=== PATIENT | female | born 1950 | race Caucasian/White ===

== ENCOUNTER 2018-04-14 16:42 | Emergency (ER) | payer MEDICARE ==
[~2018-04-14 16:42] MED LIST: Iopamidol 370 76% 100 ML VIAL ONE
[2018-04-14] MEDS ORDERED: Ondansetron HCl/PF 4 MG/2 ML Vial ONE (17:09)
[2018-04-14 17:27] LABS: Bilirubin Moderate (Negative); Blood, Urine Negative (Negative); Clarity Slightly Cloudy (Clear); Glucose, Urine (Dipstick) Negative (Negative); Leukocyte Moderate (Negative); Nitrite Negative (Negative); Protein, Urine (Dipstick) Negative (Neg-Trace); Urobilinogen 0.2 mg/dL (0.2-1.0); pH, Urine 5.5 (5.0-9.0)
[2018-04-14 17:28] LABS: Bacteria/HPF 4+ HPF (None Seen); Hyaline Casts/LPF NONE SEEN LPF (0-3 Hyaline); RBC/HPF None Seen HPF (0-3); Squamous Epithelial 0-3 HPF (0-3)
[2018-04-14 17:39] LABS: #Basophils 0.1 thou/uL (0.0-0.2); #Eosinphils 0.2 thou/uL (0.0-0.7); #Lymphocytes 2.1 thou/uL (1.20-3.40); #Monocytes 0.8 thou/uL (0.11-0.59); #Neutrophils 7.4 thou/uL (1.40-6.50); %Basophils 0.5 % (0.0-1.0); %Eosinophils 2.1 % (0.0-10.0); %Lymphocytes 19.7 % (21.0-51.0); %Neutrophils 69.7 % (42.0-75.0); Hemoglobin 13.9 g/dL (12.0-16.0); Mean Corpuscular Hemoglobin 29.4 pg (27.0-31.0); Mean Corpuscular Volume 86.4 fl (81.0-99.0); Mean Platelet Volume 8.2 fL (7.4-10.4); Platelet Count 232 thou/uL (130-400); RBC Distribution Width 11.2 % (11.5-14.5); Red Blood Cell (RBC) Count 4.73 mill/uL (4.20-5.40); White Blood Cell (WBC) Count 10.6 thou/uL (4.8-10.8)
[2018-04-14 17:50] LABS: ALT (SGPT) 21 U/L (8-55); AST (SGOT) 19 U/L (5-34); Albumin 4.2 g/dL (3.4-4.8); Alkaline Phosphatase 79 U/L (40-150); Anion Gap 12 mmol/L (10-20); BUN (Urea Nitrogen) 14 mg/dL (9.8-20.1); Bilirubin, Total 0.4 mg/dL (0.2-1.2); Calc. Creatinine Clearance 0 mL/min (70-130); Calcium 9.6 mg/dL (7.8-10.44); Carbon Dioxide 29 mmol/L (23-31); Chloride 105 mmol/L (98-107); Estimated GFR-MDRD 71; Globulin 2.7 g/dL (2.4-3.5); Glucose 135 mg/dL (80-115); Lipase 31 U/L (8-78); Protein, Total 6.9 g/dL (6.0-8.3); Sodium 142 mmol/L (136-145)
[2018-04-14] MEDS ORDERED: metroNIDAZOLE 500 MG/100 ML BAG ONE (19:22)
--- NOTE | 2018-04-14 19:46 | CT ---
CT OF ABDOMEN AND PELVIS 04/14/18 COMPARISON: None. HISTORY: Abdominal pain. History of diverticulitis. TECHNIQUE: Serial axial CT imaging at 5 mm intervals from lung bases through pubic symphysis with IV and oral co ntrast. Coronal reformatted imaging obtained. FINDINGS: The imaged lung bases are unremarkable. Cholecystectomy clips are noted. No free intraperitoneal air or fluid is seen. The liver, spleen, pancreas, and adrenal glands are grossly unremarkable. There is a punctate focus o f gas at the level of the ampulla in the region of the CBD, which may be on the basis of prior interv ention. The kidneys appear grossly unremarkable. There is diverticulosis of the descending colon and sigmoid colon. There is an area of wall thickenin g involving the sigmoid colon with mild pericolonic inflammatory change laterally within the left low er quadrant, best seen on axial image 63. This suggests diverticulitis. No associated abscess. No ext raluminal gas. No evidence for bowel obstruction. Appendix appears unremarkable. No adenopathy is identified within the abdomen or pelvis. Review of osseous structures demonstrates multilevel lumbar spine degenerative change, which includes multilevel disc space narrowing, degenerative end plate change, osteophyte formation, and vacuum dis c formation. No worrisome lytic or blastic bone lesion. IMPRESSION: Findings suggesting sigmoid diverticulitis. No evidence for obstruction or abscess formation. No free intraperitoneal air. POS: CHERYLE
== END 2018-04-14 20:30 | disposition home or self-care (01) ==
LOC: SCSER 16:42
DX: K57.32 Diverticulitis of large intestine without perforation or abscess without bleeding (principal); N30.00 Acute cystitis without hematuria; I10 Essential (primary) hypertension; E78.5 Hyperlipidemia, unspecified; J45.909 Unspecified asthma, uncomplicated; Z79.899 Other long term (current) drug therapy
CPT/HCPCS: 74177; 80053; 81003; 81015; 83605; 83690; 85025; 96361; 96365; 96366; 96368; 96375; J1956; J2405

== ENCOUNTER 2018-04-24 10:15 | Inpatient (IN) | payer MEDICARE ==
[2018-04-24 10:35] VITALS: BMI 42.1
[2018-04-30] MEDS ORDERED: Sodium Chloride 0.9% 10 ML ONE (06:27)
[2018-04-30] MEDS ORDERED: Fentanyl 250 MCG/5 ML VIAL ONE (06:47)
[2018-04-30] MEDS ORDERED: Midazolam HCl 2 mg/2 ml Vial ONE (06:49)
[2018-04-30] MEDS ORDERED: CEFAZOLIN/Water 2 GM/20 ML SYRINGE ONE (07:09)
[2018-04-30] MEDS ORDERED: Ondansetron HCl/PF 4 MG/2 ML Vial IVP PRN ×2 (08:11→10:29)
[2018-04-30] MEDS ORDERED: Promethazine HCl 25 MG/ML VIAL SLOW IVP PRN (08:11)
[2018-04-30] MEDS ORDERED: Promethazine HCl 25 MG/ML VIAL IM PRN ×2 (08:11→10:27)
--- NOTE | 2018-04-30 08:39 | OP ---
DATE OF PROCEDURE: 04/30/2018 SURGEON: Angelo Cope M.D. HEMATOLOGY TECHNOLOGIST: Kurt Castro PROCEDURE: L2 through L3 decompressive laminectomy, posterolateral arthrodesis, demineralized bone m atrix, BMP, cancellous bone chips, local morselized autograft L2 through L4. PROCEDURE IN DETAIL: The patient was brought to the operating room and intubated. She was rolled in the prone position on gel-filled chest rolls. Previous incision was reopened and extended superiorl y identifying L2 through L4. L4 had already been removed. We performed L3 and L2 laminectomy, compl etely decompressing L2-3 interspace. The pedicles between L2 and L4 were too small to hold hardware; therefore prepared the posterolateral surfaces for the purpose of arthrodesis and placed a combinati on of cancellous bone chips, local morselized autograft, and BMP on a [place] pledget in the lateral recesses between L2 and L4. Prior to this, the wound was extensively irrigated, immaculate hemostasi s was secured. Vancomycin powder was applied and the wound was then closed in anatomic layers.
[2018-04-30] MEDS ORDERED: Fentanyl 100 MCG/2 ML VIAL ONE ×3 (08:40→09:12)
[2018-04-30] MEDS ORDERED: Morphine 4 MG/ML VIAL ONE (09:39)
[2018-04-30] MEDS ORDERED: traMADol HCl 50 MG TAB PO PRN ×2 (10:27)
[2018-04-30] MEDS ORDERED: Morphine 4 MG/ML Carpuject SLOW IVP PRN (10:27)
[2018-04-30] MEDS ORDERED: Bisacodyl 10 MG SUPP PR PRN (10:27)
[2018-04-30] MEDS ORDERED: Mag-Al 1200 mg/1200 mg/30 ML UDCUP PO PRN (10:27)
[2018-04-30] MEDS ORDERED: HYDROcodone/Acetaminophen 10/325 mg Tablet PO PRN (10:27)
[2018-04-30] MEDS ORDERED: diphenhydrAMINE 25 MG CAP PO PRN (10:27)
[2018-04-30] MEDS ORDERED: Milk Of Magnesia 30 ML UDCUP PO PRN (10:27)
[2018-04-30] MEDS ORDERED: Promethazine 25 MG TAB PO PRN (10:27)
[2018-04-30] MEDS ORDERED: diphenhydrAMINE 50 MG/ML VIAL IVP PRN (10:27)
[2018-04-30] MEDS ORDERED: Promethazine HCl 12.5 MG SUPP PR PRN (10:27)
[2018-04-30] MEDS ORDERED: Albuterol Sulfate 1.25 MG/3 ML NEB NEB PRN (10:52)
[2018-04-30] MEDS ORDERED: Acetaminophen 325 MG TAB PO PRN (10:53)
--- NOTE | 2018-04-30 14:21 | PDOC.PN ---
- Subjective Encounter Start Date: 04/30/18 Encounter Start Time: 14:19 Subjective: s/p Lumbar laminectomy. feels well. no complaints at this time -: IM team consulted for medical management -: PMH-HTN,HLD,hypothyroid,Carcinoid lung w lobe removal ,R lung - Objective MAR Reviewed: Yes Vital Signs & Weight: Weight Weight 238 lb Additional Labs: labs reviewed from 04/16 Phys Exam - Physical Examination Constitutional: NAD HEENT: PERRLA, moist MMs, sclera anicteric, oral pharynx no lesions Neck: no nodes, no JVD, supple, full ROM Respiratory: no wheezing, no rales, no rhonchi, clear to auscultation bilateral Cardiovascular: RRR, no significant murmur, no rub Gastrointestinal: soft, non-tender, no distention, positive bowel sounds Musculoskeletal: no edema, pulses present Neurological: non-focal, normal sensation, moves all 4 limbs Psychiatric: normal affect, A&O x 3 Skin: no rash Dx/Plan (1) Personal history of malignant carcinoid tumor of bronchus and lung Code(s): Z85.110 - PERSONAL HISTORY OF MALIG CARCINOID TUMOR OF BRONC AND LUNG Status: Acute (2) S/P lumbar laminectomy Code(s): Z98.890 - OTHER SPECIFIED POSTPROCEDURAL STATES Status: Acute (3) H/O diverticulitis of colon Code(s): Z87.19 - PERSONAL HISTORY OF OTHER DISEASES OF THE DIGESTIVE SYSTEM Status: Chronic Comment: recent acute attack with treatment with antibiotics finished 1 week ago. (4) Asthma Code(s): J45.909 - UNSPECIFIED ASTHMA, UNCOMPLICATED Status: Acute (5) GERD (gastroesophageal reflux disease) Code(s): K21.9 - GASTRO-ESOPHAGEAL REFLUX DISEASE WITHOUT ESOPHAGITIS Status: Acute (6) Hyperlipidemia Code(s): E78.5 - HYPERLIPIDEMIA, UNSPECIFIED Status: Acute (7) Hypertension Code(s): I10 - ESSENTIAL (PRIMARY) HYPERTENSION Status: Acute (8) Hypothyroidism Code(s): E03.9 - HYPOTHYROIDISM, UNSPECIFIED Status: Acute - Plan PT/OT, respiratory therapy, incentive spirometry, out of bed/ambulate, DVT proph w/SCDs Stop ABx. pt finished the course 1 week ago.no new indication -: resume home meds. -: am labs. hemodynamically stable.add duonebs. -: will follow. -: check UA. last sample contaminated w Cx negative. no symptoms * . Review of Systems - Review of Systems Constitutional: negative: fever, chills, sweats, weakness, malaise, other ENT: negative: Ear Pain, Ear Discharge, Nose Pain, Nose Discharge, Nose Congestion, Mouth Pain, Mouth Swelling, Throat Pain, Throat Swelling, Other Respiratory: negative: Cough, Dry, Shortness of Breath, Hemoptysis, SOB with Excertion, Pleuritic Pain, Sputum, Wheezing Cardiovascular: negative: chest pain, palpitations, orthopnea, paroxysmal nocturnal dyspnea, edema, light headedness, other Gastrointestinal: negative: Nausea, Vomiting, Abdominal Pain, Diarrhea, Constipation, Melena, Hematochezia, Other Genitourinary: negative: Dysuria, Frequency, Incontinence, Hematuria, Retention , Other Musculoskeletal: negative: Neck Pain, Shoulder Pain, Arm Pain, Back Pain, Hand Pain, Leg Pain, Foot Pain, Other Neurological: negative: Weakness, Numbness, Incoordination, Change in Speech, Confusion, Seizures, Other - Medications/Allergies Allergies/Adverse Reactions: Allergies Allergy/AdvReac Type Severity Reaction Status Date / Time esomeprazole [From Nexium] Allergy Verified 04/24/18 10:35 ramipril Allergy Verified 04/24/18 10:35 Sulfa (Sulfonamide Allergy Verified 04/24/18 10:35 Antibiotics) Medications: Current Medications Acetaminophen (Tylenol) 650 mg PO Q4H PRN PRN Reason: Headache/Fever or Pain Hydrocodone Bitart/Acetaminophen ([place] 10/325) 1 tab PO Q4H PRN PRN Reason: PAIN (1-3) Hydrocodone Bitart/Acetaminophen ([place] 10/325) 2 tab PO Q4H PRN PRN Reason: PAIN (4-6) Al Hydroxide/Mg Hydroxide (Maalox) 30 ml PO Q4H PRN PRN Reason: Heartburn or Indigestion Albuterol Sulfate (Albuterol Sulfate) 1.25 mg NEB Q8H PRN PRN Reason: SOB Albuterol Sulfate (Proventil Hfa) 2 puff INH DAILY [facility] Ascorbic Acid (Vitamin C) 2,000 mg PO DAILY [facility] Bisacodyl (Dulcolax) 10 mg IN Q12H PRN PRN Reason: Constipation Cefazolin Sodium (Ancef) 2 gm SLOW IVP Q8HR [facility] Stop: 04/30/18 22:01 Cholecalciferol (Vitamin D3) 5,000 units PO DAILY [facility] Cyanocobalamin (Vitamin B-12) 5,000 mcg PO DAILY [facility] Diphenhydramine HCl (Benadryl) 25 mg PO Q6H PRN PRN Reason: Itching Diphenhydramine HCl (Benadryl) 25 mg IVP Q6H PRN PRN Reason: Itching Fish Oil (Fish Oil) 1,000 mg PO DAILY [facility] Sodium Chloride (Normal Saline 0.9%) 1,000 mls @ 75 mls/hr IV .[id number] [facility] Iron/Minerals/Multivitamins (Theragran M) 1 tab PO DAILY [facility] Levofloxacin (Levaquin) 750 mg PO 0600 [facility] Levothyroxine Sodium (Synthroid) 125 mcg PO 0600 [facility] Loratadine (Claritin) 10 mg PO HS [facility] Losartan Potassium (Cozaar) 50 mg PO DAILY [facility] Magnesium Hydroxide (Milk Of Magnesium) 30 ml PO Q12H PRN PRN Reason: Constipation Metoprolol Tartrate (Lopressor) 50 mg PO HS [facility] Metronidazole (Flagyl) 500 mg PO TID [facility] Montelukast Sodium (Singulair) 10 mg PO DAILY [facility] Morphine Sulfate (Morphine) 2 mg SLOW IVP Q1H PRN PRN Reason: Moderate Breakthrough Pain Morphine Sulfate (Morphine) 4 mg SLOW IVP Q1H PRN PRN Reason: SEVERE BREAKTHROUGH PAIN Last Admin: 04/30/18 14:01 Dose: 4 mg Niacin (Niaspan Er) 500 mg PO DAILY [facility] Non-Formulary Medication (Albuterol Sulfate Hfa (Or)) 2 puff INH DAILY [facility] Non-Formulary Medication (Fish Oil/Borage/Flax/Om3,6,9 1 [[place] 3-6-9 Complex Softgel]) 1 cap PO DAILY [facility] Non-Formulary Medication (Levocetirizine Dihydrochloride [Levocetirizine Dihydrochloride]) 5 mg PO HS [facility] Ondansetron HCl (Zofran) 4 mg IVP Q8H PRN PRN Reason: Nausea/Vomiting Pantoprazole Sodium (Protonix) 40 mg PO BID [facility] Prasterone 50 Mg/150 (Mg) 0 each PO DAILY [facility] Elizabeth 1000 Mg 0 each PO DAILY [facility] Cinnamon Bark 500 Mg 0 each PO DAILY [facility] Promethazine HCl (Phenergan) 12.5 mg IM Q4H PRN PRN Reason: Nausea/Vomiting Promethazine HCl (Phenergan) 12.5 mg PO Q4H PRN PRN Reason: Nausea/Vomiting Promethazine HCl (Phenergan Suppository) 12.5 mg IN Q4H PRN PRN Reason: Nausea/Vomiting Rosuvastatin Calcium (Crestor) 10 mg PO HS [facility] Rosuvastatin Calcium (Crestor) 10 mg PO HS [facility] Sodium Chloride (Flush - Normal Saline) 10 ml IVF Q12HR [facility] Sodium Chloride (Flush - Normal Saline) 10 ml IVF PRN PRN PRN Reason: Saline Flush Tizanidine HCl (Zanaflex) 4 mg PO Q6H PRN PRN Reason: MUSCLE SPASM Tramadol HCl (Ultram) 50 mg PO Q6H PRN PRN Reason: PAIN (1-3) Tramadol HCl (Ultram) 100 mg PO Q6H PRN PRN Reason: PAIN (4-6) Triamterene/HCTZ (Maxzide-25) 1 tab PO QAM [facility]
[2018-04-30] MEDS ORDERED: traZODone HCl 50 MG TAB PO PRN (14:25)
[2018-04-30] MEDS ORDERED: cloNIDine 0.1 MG TAB PO PRN (14:25)
[2018-04-30] MEDS ORDERED: Diabetic Tussin 200 MG/10 ML UDCUP PO PRN (14:25)
[2018-04-30] MEDS ORDERED: Nitroglycerin 0.4 MG TAB (25 Tab Bottle) SL PRN (14:25)
[2018-04-30] MEDS ORDERED: Calcium Carbonate 500 MG ChewTAB PO PRN (14:25)
[2018-04-30] MEDS ORDERED: hydrALAZINE 20 MG/ML VIAL SLOW IVP PRN (14:25)
[2018-04-30] MEDS ORDERED: Benzonatate 100 MG CAP PO PRN (14:25)
[2018-04-30] MEDS ORDERED: Glycopyrrolate 0.2 MG/ML 5 ML SYRINGE ONE (14:38)
[2018-04-30] MEDS ORDERED: Ondansetron HCl/PF 4 MG/2 ML Vial ONE (14:38)
[2018-04-30] MEDS ORDERED: PROPOFOL 200 MG/20 ML VIAL ONE (14:38)
[2018-04-30] MEDS ORDERED: Dexamethasone 20 MG/5 ML VIAL ONE (14:38)
[2018-04-30] MEDS ORDERED: Lidocaine 1% PF 5 ML VIAL ONE (14:38)
[2018-04-30] MEDS: CEFAZOLIN/Water 2 GM/20 ML SYRINGE SLOW IVP SCH ×2 (14:56→21:50)
[2018-04-30] MEDS ORDERED: metroNIDAZOLE 500 MG TAB PO SCH (15:00)
[2018-04-30] MEDS: Sodium Chloride 0.9% 1,000 ML IV SCH ×2 (15:47→22:08)
[2018-04-30] MEDS: HYDROcodone/Acetaminophen 10/325 mg Tablet PO PRN (20:38)
[2018-04-30] MEDS ORDERED: Metoprolol Tartrate 50 MG TAB PO SCH (21:00)
[2018-04-30] MEDS ORDERED: Rosuvastatin 10 MG TAB PO SCH ×2 (21:00)
[2018-04-30] MEDS ORDERED: Loratadine 10 MG TAB PO SCH ×2 (21:00)
[2018-04-30] MEDS: tiZANidine HCl 4 MG TAB PO PRN (21:50)
[2018-05-01] MEDS: HYDROcodone/Acetaminophen 10/325 mg Tablet PO PRN ×2 (01:34→09:20)
[2018-05-01] MEDS ORDERED: Levothyroxine Sodium 125 MCG TAB PO SCH (06:00)
[2018-05-01 06:10] LABS: Anion Gap 9 mmol/L (10-20); BUN (Urea Nitrogen) 12 mg/dL (9.8-20.1); Calc. Creatinine Clearance 146 mL/min (70-130); Calcium 8.5 mg/dL (7.8-10.44); Carbon Dioxide 32 mmol/L (23-31); Chloride 103 mmol/L (98-107); Estimated GFR-MDRD Greater than 90; Glucose 125 mg/dL (80-115); Potassium 4.2 mmol/L (3.5-5.1); Sodium 140 mmol/L (136-145)
[2018-05-01 06:15] LABS: #Lymphocytes 1.7 thou/uL (1.20-3.40); #Neutrophils 8.9 thou/uL (1.40-6.50); %Basophils 0.2 % (0.0-1.0); %Eosinophils 0.3 % (0.0-10.0); %Lymphocytes 14.5 % (21.0-51.0); %Monocytes 8.3 % (0.0-10.0); %Neutrophils 76.7 % (42.0-75.0); Hemoglobin 12.3 g/dL (12.0-16.0); Mean Corpuscular HGB CONC 33.3 g/dL (32.0-36.0); Mean Corpuscular Hemoglobin 30.3 pg (27.0-31.0); Mean Corpuscular Volume 91.1 fL (78.0-98.0); Mean Platelet Volume 7.7 fL (7.4-10.4); Platelet Count 240 thou/uL (130-400); RBC Distribution Width 11.6 % (11.5-14.5); Red Blood Cell (RBC) Count 4.06 mill/uL (4.20-5.40); White Blood Cell (WBC) Count 11.5 thou/uL (4.8-10.8)
[2018-05-01] MEDS: tiZANidine HCl 4 MG TAB PO PRN (06:19)
[2018-05-01] MEDS ORDERED: PROVENTIL INHALER 6.7 G (200 INHALATIONS) INH SCH ×2 (07:00→09:00)
[2018-05-01 08:53] VITALS: BP 150/76; TEMP 98.6
[2018-05-01] MEDS ORDERED: NONI PO SCH (09:00)
[2018-05-01] MEDS ORDERED: FISH OIL PO SCH (09:00)
[2018-05-01] MEDS ORDERED: Ascorbic Acid 500 mg Chewable Tablet PO SCH (09:00)
[2018-05-01] MEDS ORDERED: PRASTERONE PO SCH (09:00)
[2018-05-01] MEDS ORDERED: CINNAMON BARK 500 MG PO SCH (09:00)
[2018-05-01] MEDS ORDERED: BORAGE PO SCH (09:00)
[2018-05-01] MEDS ORDERED: Multivitamin W/ Minerals 1 TAB PO SCH (09:00)
[2018-05-01] MEDS ORDERED: Losartan 25 MG TAB PO SCH (09:00)
[2018-05-01] MEDS ORDERED: FLAX PO SCH (09:00)
[2018-05-01] MEDS ORDERED: Cyanocobalamin (Vitamin B-12) 1,000 MCG TAB PO SCH (09:00)
[2018-05-01] MEDS ORDERED: [UNRECOGNIZED DRUG - OTHER] PO SCH (09:00)
[2018-05-01] MEDS ORDERED: Montelukast Sodium 10 mg Tablet PO SCH (09:00)
[2018-05-01] MEDS ORDERED: Triamterene/Hydrochlorothiazide 37.5 mg/25 mg Tablet PO SCH (09:00)
[2018-05-01] MEDS ORDERED: Fish Oil 1,000 MG CAP PO SCH (09:00)
[2018-05-01 11:19] LABS: Bilirubin Negative (Negative); Blood, Urine Negative (Negative); Clarity CLEAR (Clear); Glucose, Urine (Dipstick) Negative (Negative); Leukocyte Moderate (Negative); Nitrite Negative (Negative); Protein, Urine (Dipstick) Negative (Neg-Trace); Specific Gravity, Urine 1.018 (1.002-1.036); Urobilinogen 0.2 mg/dL (0.2-1.0)
[2018-05-01 11:21] LABS: Bacteria/HPF None Seen HPF (None Seen); Hyaline Casts/LPF 0-3 HYALINE CAST LPF (0-3 Hyaline); Pathc Cast-AUWi Flag 0.58 (0-2.49); RBC/HPF 0-3 HPF (0-3); WBC/HPF 21-50 HPF (0-3)
--- NOTE | 2018-05-01 14:05 | PDOC.EVN ---
Event Note - Event Note Event Note: Pt was Dced by primary team prior to my eval.Chart and labs etc reviewed
== END 2018-05-01 11:22 | disposition home or self-care (01) | DRG 460 ==
LOC: SURG A 04-30 05:59 → SJJU 04-30 10:28
PROVIDERS: ADMIT Neurological Surgery; ATTEND Neurological Surgery
PROC: 0SG1071 Fusion of 2 or more Lumbar Vertebral Joints with Autologous Tissue Substitute, Posterior Approach, Posterior Column, Open Approach (ICD-10-PCS; principal; 2018-04-30)
PROC: 01NB0ZZ Release Lumbar Nerve, Open Approach (ICD-10-PCS; 2018-04-30)
PROC: 3E0U0GB Introduction of Recombinant Bone Morphogenetic Protein into Joints, Open Approach (ICD-10-PCS; 2018-04-30)
DX: M48.061 Spinal stenosis, lumbar region without neurogenic claudication (principal); I10 Essential (primary) hypertension; E78.5 Hyperlipidemia, unspecified; E03.9 Hypothyroidism, unspecified; J45.909 Unspecified asthma, uncomplicated; Z85.110 Personal history of malignant carcinoid tumor of bronchus and lung; K21.9 Gastro-esophageal reflux disease without esophagitis
CPT/HCPCS: 36415; 76001; 80048; 81001; 85025; A4216; G8978-GP-CJ; G8979-GP-CJ; G8980-GP-CJ; J1100; J2001; J2250; J2270; J2405; J2704; J3010; J3370; J3490

== ENCOUNTER 2018-04-24 10:26 | Outpatient (CLI) | payer MEDICARE ==
[2018-04-24 12:23] LABS: Mean Corpuscular HGB CONC 33.3 g/dL (32.0-36.0); Mean Corpuscular Volume 90.1 fL (78.0-98.0); Mean Platelet Volume 7.5 fL (7.4-10.4); Platelet Count 267 thou/uL (130-400); RBC Distribution Width 11.6 % (11.5-14.5); Red Blood Cell (RBC) Count 4.66 mill/uL (4.20-5.40); White Blood Cell (WBC) Count 6.4 thou/uL (4.8-10.8)
[2018-04-24 12:24] LABS: PTT 28.2 SEC (22.9-36.1); Prothrombin Time 13.1 SEC (12.0-14.7)
[2018-04-24 12:54] LABS: Anion Gap 13 mmol/L (10-20); BUN (Urea Nitrogen) 17 mg/dL (9.8-20.1); Calc. Creatinine Clearance 0 mL/min (70-130); Calcium 9.8 mg/dL (7.8-10.44); Carbon Dioxide 26 mmol/L (23-31); Chloride 105 mmol/L (98-107); Estimated GFR-MDRD 82; Glucose 95 mg/dL (80-115); Potassium 4.4 mmol/L (3.5-5.1); Sodium 140 mmol/L (136-145)
== END 2018-04-24 10:27 | disposition home or self-care (01) ==
LOC: LABBT 10:26
PROVIDERS: ATTEND Neurological Surgery
DX: Z01.818 Encounter for other preprocedural examination (principal); M48.061 Spinal stenosis, lumbar region without neurogenic claudication
CPT/HCPCS: 80048; 85027; 85610; 85730; 93005; 93010

== ENCOUNTER 2018-05-15 15:57 | Outpatient (CLI) | payer MEDICARE ==
--- NOTE | 2018-05-15 16:10 | RAD ---
TWO TO THREE VIEW LUMBAR SPINE RADIOGRAPH SERIES: 05/15/18 INDICATION: Spinal stenosis. Lumbar spine surgery. FINDINGS: There is grade I spondylolisthesis of L3 on 4 and grade I-II spondylolisthesis of L4-5. There is osse ous bridging of the L5-S1 interspace. There is multilevel end plate degenerative change throughout th e imaged lower thoracic and lumbar spine. Multilevel facet sclerosis is seen. There are metallic clip s of the upper right abdomen and metallic sapphire overlie the posterior lumbar region. There is dextroscoliosis of the lumbar spine epicenter at L3. IMPRESSION: Multilevel degenerative change at the postoperative lumbar spine. POS: CHERYLE
== END 2018-05-15 15:58 | disposition home or self-care (01) ==
LOC: TBSIIMAG 15:57
PROVIDERS: ATTEND Physician Assistant
DX: M48.062 Spinal stenosis, lumbar region with neurogenic claudication (principal); M47.896 Other spondylosis, lumbar region; Z98.890 Other specified postprocedural states
CPT/HCPCS: 72100

== ENCOUNTER 2018-06-26 12:19 | Outpatient (CLI) | payer MEDICARE | END 2018-06-26 12:20 | disposition home or self-care (01) | LOC: BICRAD 12:19 | PROVIDERS: ATTEND Neurological Surgery | DX: M48.061 Spinal stenosis, lumbar region without neurogenic claudication (principal); M47.896 Other spondylosis, lumbar region; M43.16 Spondylolisthesis, lumbar region; Q76.6 Other congenital malformations of ribs | CPT/HCPCS: 72100 ==

== ENCOUNTER 2018-08-08 13:00 | Outpatient (CLI) | payer MEDICARE | END 2018-08-08 13:01 | disposition home or self-care (01) | LOC: BICMAMMO 13:00 | PROVIDERS: ATTEND Family Medicine | DX: Z12.31 Encounter for screening mammogram for malignant neoplasm of breast (principal); Z80.3 Family history of malignant neoplasm of breast | CPT/HCPCS: 77063; 77067 ==

== ENCOUNTER 2018-08-28 12:43 | Outpatient (CLI) | payer MEDICARE ==
--- NOTE | 2018-08-28 14:05 | RAD ---
LUMBAR SPINE TWO VIEWS: HISTORY: Low back pain. Recent surgery. COMPARISON: 05/15/2018 FINDINGS: Prominent rightward convex rotatory scoliotic curvature. Absence of the laminae at the lowest three levels. Disk space narrowing at each level, and grade 1 spondylolisthesis at the L3-L4 and L4-L5 lev els, similar to the most recent exam. Prominent osteophytosis throughout the facets. IMPRESSION: Postoperative and degenerative changes, lumbar spine, appear stable. POS: CHERYLE
== END 2018-08-28 12:44 | disposition home or self-care (01) ==
LOC: TBSIIMAG 12:43
PROVIDERS: ATTEND Neurological Surgery
DX: M43.16 Spondylolisthesis, lumbar region (principal); M47.896 Other spondylosis, lumbar region; Z98.890 Other specified postprocedural states
CPT/HCPCS: 72100

== ENCOUNTER 2018-10-08 06:55 | Day surgery (SDC) | payer MEDICARE ==
[2018-10-05 12:17] VITALS: BMI 40.3
--- NOTE | 2018-10-08 15:46 | OP ---
DATE OF PROCEDURE: 10/08/2018 PROCEDURES PERFORMED: Colonoscopy with biopsy and polypectomy. INDICATIONS FOR PROCEDURE: Personal history of colonic polyps, hematochezia. DESCRIPTION OF PROCEDURE: After the risks and benefits of the procedure were explained to the patient including risks of bleeding, infection, perforation, reactions to anesthesia, aspiration, and/or pain, informed consent was obtained. The patient was then taken to the endoscopy suite, where deep sedation was performed via propofol and anesthesia support. Once adequate sedation was achieved, an external examination was performed of the rectum followed by introduction of the standard colonoscope, that was then advanced to the terminal ileum without difficulty. The quality of the prep was good to excellent with adequate visualization of the colonic mucosa. The patient tolerated the procedure well with no immediate perioperative complications. At the conclusion of the procedure, all equipment was removed from the patient and the patient was taken to Day Stay in satisfactory condition. COLONOSCOPY FINDINGS: Digital rectal exam: Medium size external hemorrhoids were seen on external examination. Colon findings: Normal-appearing mucosa was seen with the terminal ileum as well as at the appendiceal orifice and ileocecal valve. A 2- to 3-mm polyp was seen in the cecum and completely removed with Jumbo forceps. The polyp was retrieved and placed in the specimen jar for evaluation. Three polyps measuring 3 to 4 mm in size were seen in the ascending colon and completely removed with combination of Jumbo biopsy forceps and cold snare polypectomy. They were all retrieved and placed in the specimen jar for evaluation. Normal-appearing mucosa was then seen in the transverse and proximal descending colon. In the distal descending colon and sigmoid colon, there were numerous large and small diverticula without any evidence of increased mucosal erythema, stricturing, or ulceration. A 4-mm polyp was also seen in the sigmoid colon and completely removed with cold snare polypectomy. Lastly, a 3- to 4-mm polyp was seen within the rectum and completely removed with cold snare polypectomy. It was completely removed and placed in the specimen jar for evaluation. On rectal retroflexion, small internal hemorrhoids were also noted. IMPRESSION: 1. A 2- to 3-mm cecal polyp, status post Jumbo biopsy forceps. 2. Three ascending colon polyps measuring 3 to 4 mm in size, status post cold snare polypectomy and biopsy forceps. 3. Severe left-sided diverticulosis. 4. A 4-mm sigmoid colon polyp, status post cold snare polypectomy. 5. A 3- to 4- mm rectal polyp, status post cold snare polypectomy. 6. Both internal and external hemorrhoids (most likely reasoned for the patient's hematochezia). RECOMMENDATIONS: 1. I will follow up on the biopsy results with repeat colonoscopy interval depending on the pathology report. 2. We would recommend a higher-fiber diet given history of diverticulitis and internal and external hemorrhoids seen on examination today. 3. We would have the patient follow up in the GI Clinic in 3 weeks with probable referral to colorectal surgeon given repeated bouts of diverticulitis in the past. Job ID: [id number]
== END 2018-10-08 10:55 | disposition home or self-care (01) ==
LOC: SDC 06:55
PROVIDERS: ATTEND Internal Medicine
PROC: 0DBK8ZX Excision of Ascending Colon, Via Natural or Artificial Opening Endoscopic, Diagnostic (ICD-10-PCS; principal; 2018-10-08)
PROC: 0DBK8ZX Excision of Ascending Colon, Via Natural or Artificial Opening Endoscopic, Diagnostic (ICD-10-PCS; 2018-10-08)
PROC: 0DBN8ZX Excision of Sigmoid Colon, Via Natural or Artificial Opening Endoscopic, Diagnostic (ICD-10-PCS; 2018-10-08)
PROC: 0DBP8ZX Excision of Rectum, Via Natural or Artificial Opening Endoscopic, Diagnostic (ICD-10-PCS; 2018-10-08)
DX: K57.31 Diverticulosis of large intestine without perforation or abscess with bleeding (principal); D12.5 Benign neoplasm of sigmoid colon; D12.2 Benign neoplasm of ascending colon; K63.5 Polyp of colon; K62.1 Rectal polyp; K64.4 Residual hemorrhoidal skin tags; K64.8 Other hemorrhoids; K21.9 Gastro-esophageal reflux disease without esophagitis; D64.9 Anemia, unspecified; M19.90 Unspecified osteoarthritis, unspecified site; M35.9 Systemic involvement of connective tissue, unspecified; I10 Essential (primary) hypertension; E78.00 Pure hypercholesterolemia, unspecified; E07.9 Disorder of thyroid, unspecified; G47.30 Sleep apnea, unspecified; Z86.010 Personal history of colon polyps; Z79.899 Other long term (current) drug therapy; Z88.2 Allergy status to sulfonamides; Z88.8 Allergy status to other drugs, medicaments and biological substances; Z91.010 Allergy to peanuts
CPT/HCPCS: 88305

== ENCOUNTER 2019-04-04 10:45 | Outpatient (CLI) | payer MEDICARE ==
--- NOTE | 2019-04-04 13:33 | RAD ---
LEFT HIP 2 VIEWS: Date: 04/04/19 HISTORY: Left hip pain. FINDINGS/IMPRESSION: Mild degenerative changes left hip joint. No fracture, dislocation, or other acute osseous process. POS: OFF
--- NOTE | 2019-04-04 13:34 | RAD ---
LUMBAR SPINE 2 VIEWS: Date: 04/04/19 HISTORY: Low back pain. COMPARISON: 08/28/18. FINDINGS: Stable Grade I anterolisthesis of L3 on L4 and L4 on L5. Postop laminectomy changes. Scoliotic deform ity of the lumbar spine and lumbar thoracic junction region. IMPRESSION: Stable appearing lumbar spine. POS: OFF
== END 2019-04-04 10:46 | disposition home or self-care (01) ==
LOC: TBSIIMAG 10:45
PROVIDERS: ATTEND Neurological Surgery
DX: M54.5 Low back pain (principal); M25.552 Pain in left hip; M16.12 Unilateral primary osteoarthritis, left hip
CPT/HCPCS: 72100

== ENCOUNTER 2019-11-06 10:35 | Outpatient (CLI) | payer MEDICARE ==
--- NOTE | 2019-11-06 11:11 | MMO ---
Bilateral MAMMO Bilat Screen [facility]. CLINICAL HISTORY: Patient is 69 years old and is seen for screening. The patient has the following family history of breast cancer: maternal aunt, at age 92, malignant (generic). The patient has no personal history of cancer. VIEWS: The views performed were: bilateral craniocaudal with tomosynthesis and bilateral mediolateral oblique with tomosynthesis. FILMS COMPARED: The present examination has been compared to prior imaging studies performed at [facility] on 08/08/2018, and at [facility] on 05/28/2008, 11/05/2014 and 11/19/2015. This study has been interpreted with the assistance of computer-aided detection. MAMMOGRAM FINDINGS: There are scattered fibroglandular densities. There are stable benign appearing calcifications seen in both breasts. Nodularity is stable. There are no suspicious masses, suspicious calcifications, or new areas of architectural distortion. IMPRESSION: THERE IS NO MAMMOGRAPHIC EVIDENCE OF MALIGNANCY. A ROUTINE FOLLOW-UP MAMMOGRAM IN 1 YEAR IS RECOMMENDED. THE RESULTS OF THIS EXAM WERE SENT TO THE PATIENT. ACR BI-RADS Category 2 - Benign finding MAMMOGRAPHY NOTE: 1. A negative mammogram report should not delay a biopsy if a dominant of clinically suspicious mass is present. 2. Approximately 10% to 15% of breast cancers are not detected by mammography. 3. Adenosis and dense breasts may obscure an underlying neoplasm. Reported by: KYLAH NAYLOR MD Electonically Signed: [id number]
== END 2019-11-06 10:36 | disposition home or self-care (01) ==
LOC: BICMAMMO 10:35
PROVIDERS: ATTEND Nurse Practitioner Family
DX: Z12.31 Encounter for screening mammogram for malignant neoplasm of breast (principal); Z80.3 Family history of malignant neoplasm of breast
CPT/HCPCS: 77063; 77067

== ENCOUNTER 2020-03-11 09:42 | Outpatient (CLI) | payer MEDICARE ==
[2020-03-11] MEDS ORDERED: Magnevist 469MG/ML 20 ML VIAL ONE (11:26)
--- NOTE | 2020-03-11 14:06 | MRI ---
MRI LUMBAR SPINE WITH AND WITHOUT CONTRAST: 03/11/20 INDICATIONS: Low back pain. History of prior lumbar surgery. Correlation made to prior plain films of lumbar spine from 2019 and 2018. Correlation made to an MRI lumbar spine from 04/03/18. There is a transitional vertebra. This transitional vertebra was labeled as L5 on the prior MRI [facility] it was designated as S1 on the plain films with rudimentary ribs at L1. I will follow the designa tion from the prior MRI of 04/03/18 and designate this transitional vertebra as L5. The lumbar vertebrae maintain height. Moderate degenerative osteophytes are seen. Slight posterolisth esis of L1-2 are stable from prior exam. Mild anterolisthesis of L2-3 is unchanged measuring in the 5 mm range. Anterior spondylolisthesis at L3-4 also appears stable as measured at 8 mm. loss of disc s pace at L4-5 and at disc narrowing at the transitional L5-S1 level is stable. Degenerative end plate changes are prominent at L4-5, stable. T12-L1: Mild disc bulge and mild facet hypertrophy. No central canal or foraminal stenosis. L1-2: Posterior disc bulge and spurring. Moderate facet hypertrophy. Mild central canal stenosis stab le from prior exam. L2-3: Anterolisthesis as noted above. Broad based disc bulge. Prominent facet hypertrophy. Moderate c entral canal stenosis, stable from prior exam. L3-4: Grade I anterolisthesis with diffuse disc bulge. Prominent facet hypertrophy. Posterior laminec rafaela change. Mild central canal stenosis, stable from prior exam. Left foraminal stenosis also stable from prior exam. There is asymmetric disc bulge osteophyte complex encroaching into the left foramin a. L4-5: Disc narrowing. Facet hypertrophy. No central canal stenosis. Disc osteophyte complex projects into the left foramina and appears to displace the exiting left L4 nerve root. T5-S1: transitional level. Loss of disc space. No central canal or foraminal stenosis. IMPRESSION: Multilevel degenerative disc change with anterolisthesis at L2-3 and L3-4 again noted. Central canal and foraminal stenosis as described above. POS: AGW
== END 2020-03-11 09:43 | disposition home or self-care (01) ==
LOC: TBSIIMAG 09:42
PROVIDERS: ATTEND Neurological Surgery
DX: M54.5 Low back pain (principal); M51.36 Other intervertebral disc degeneration, lumbar region; M43.16 Spondylolisthesis, lumbar region; M48.061 Spinal stenosis, lumbar region without neurogenic claudication
CPT/HCPCS: 72158; 82565; A9579

== ENCOUNTER 2021-09-01 10:09 | Outpatient (CLI) | payer MEDICARE | END 2021-09-01 10:10 | disposition home or self-care (01) | LOC: BICMAMMO 10:09 | PROVIDERS: ATTEND Nurse Practitioner Family | DX: Z12.31 Encounter for screening mammogram for malignant neoplasm of breast (principal); Z80.3 Family history of malignant neoplasm of breast | CPT/HCPCS: 77063; 77067 ==

== ENCOUNTER 2021-10-21 09:10 | Outpatient (CLI) | payer MEDICARE ==
[2021-10-21 10:42] LABS: Anion Gap 13 mmol/L (10-20); BUN (Urea Nitrogen) 20 mg/dL (9.8-20.1); Calc. Creatinine Clearance 0 mL/min (70-130); Calcium 8.8 mg/dL (7.8-10.44); Carbon Dioxide 30 mmol/L (23-31); Chloride 101 mmol/L (98-107); Glucose 96 mg/dL (83-110); Potassium 4.1 mmol/L (3.5-5.1); Sodium 140 mmol/L (136-145)
[2021-10-21 22:40] LABS: SARS-CoV-2 PCR by NAA Not Detected (NotDetected)
== END 2021-10-21 09:11 | disposition home or self-care (01) ==
LOC: LABBT 09:10
PROVIDERS: ATTEND Specialist
DX: Z01.812 Encounter for preprocedural laboratory examination (principal); Z20.822 Contact with and (suspected) exposure to COVID-19
CPT/HCPCS: 80048; U0003; U0005

== ENCOUNTER 2021-10-26 06:41 | Day surgery (SDC) | payer MEDICARE ==
[2021-10-20 14:15] VITALS: BMI 40.3
[2021-10-26] MEDS ORDERED: Levofloxacin 500 mg/D5W 100 ml Premix Bag ONE (07:06)
[2021-10-26] MEDS ORDERED: Bupivacaine PF 0.5% 30 ML VIAL ONE (07:07)
[2021-10-26] MEDS ORDERED: Sodium Chloride 0.9% 10 ML ONE (07:07)
[2021-10-26] MEDS ORDERED: EPINEPHrine 1 MG/ML AMP ONE (07:07)
[2021-10-26] MEDS ORDERED: methylPREDNISolone Acetate 40 mg/ml Vial ONE (07:07)
[2021-10-26] MEDS ORDERED: Midazolam HCl 2 mg/2 ml Vial ONE (08:39)
[2021-10-26] MEDS ORDERED: Fentanyl 100 MCG/2 ML VIAL ONE ×2 (08:39→11:32)
[2021-10-26] MEDS ORDERED: Propofol 1,000 MG/100 ML VIAL IV ONE ×2 (08:42→10:14)
[2021-10-26] MEDS ORDERED: Ondansetron PF 4 MG/2 ML Vial ONE (12:20)
[2021-10-26] MEDS ORDERED: HYDROcodone/Acetaminophen 5/325 mg Tablet ONE (13:04)
== END 2021-10-26 14:30 | disposition home or self-care (01) ==
LOC: SDC 06:41
PROVIDERS: ATTEND Specialist
PROC: 0JH70DZ Insertion of Multiple Array Stimulator Generator into Back Subcutaneous Tissue and Fascia, Open Approach (ICD-10-PCS; principal; 2021-10-26)
PROC: 00HU3MZ Insertion of Neurostimulator Lead into Spinal Canal, Percutaneous Approach (ICD-10-PCS; 2021-10-26)
DX: M96.1 Postlaminectomy syndrome, not elsewhere classified (principal); G89.4 Chronic pain syndrome; M51.16 Intervertebral disc disorders with radiculopathy, lumbar region; M47.26 Other spondylosis with radiculopathy, lumbar region; M48.061 Spinal stenosis, lumbar region without neurogenic claudication; M47.817 Spondylosis without myelopathy or radiculopathy, lumbosacral region; M43.16 Spondylolisthesis, lumbar region; E03.9 Hypothyroidism, unspecified; K21.9 Gastro-esophageal reflux disease without esophagitis; G47.33 Obstructive sleep apnea (adult) (pediatric); J45.909 Unspecified asthma, uncomplicated; I10 Essential (primary) hypertension; Z79.899 Other long term (current) drug therapy; Z88.1 Allergy status to other antibiotic agents; Z88.2 Allergy status to sulfonamides; Z88.8 Allergy status to other drugs, medicaments and biological substances; Z90.2 Acquired absence of lung [part of]; Z98.1 Arthrodesis status
CPT/HCPCS: 72020; 76000; 93005; 93010; C1713; C1778; C1787; C1820; J0171; J1956; J2250; J2405; J2704; J2920; J3010; L8689; S0020

== ENCOUNTER 2022-04-22 12:53 | Outpatient (CLI) | payer MEDICARE | END 2022-04-22 12:54 | disposition home or self-care (01) | LOC: BICMAMMO 12:53 | PROVIDERS: ATTEND Nurse Practitioner Family | DX: N63.10 Unspecified lump in the right breast, unspecified quadrant (principal) | CPT/HCPCS: 76642; 77065; G0279 ==

== ENCOUNTER 2022-08-24 12:39 | Observation (INO) | payer MEDICARE ==
[~2022-08-24 12:39] MED LIST changes: -Iopamidol 370 76% 100 ML VIAL ONE; +Iopamidol-370 76% 500 ML 1 ML ONE
[2022-08-24] MEDS ORDERED: Aspirin Chewable 81 MG TAB ONE (13:11)
[2022-08-24 13:26] LABS: #Eosinphils 0.2 thou/uL (0.0-0.7); #Lymphocytes 2.6 thou/uL (1.20-3.40); #Monocytes 0.9 thou/uL (0.11-0.59); %Basophils 0.3 % (0.0-1.0); %Eosinophils 1.7 % (0.0-10.0); %Lymphocytes 24.4 % (21.0-51.0); %Neutrophils 65.6 % (42.0-75.0); Hemoglobin 15.1 g/dL (12.0-16.0); Mean Corpuscular Hemoglobin 30.5 pg (27.0-31.0); Mean Corpuscular Volume 92.3 fl (78.0-98.0); Platelet Count 313 thou/uL (130-400); RBC Distribution Width 12.2 % (11.5-14.5); Red Blood Cell (RBC) Count 4.97 mill/uL (4.20-5.40); White Blood Cell (WBC) Count 10.6 thou/uL (4.8-10.8)
[2022-08-24 13:45] LABS: ALT (SGPT) 25 U/L (8-55); AST (SGOT) 23 U/L (5-34); Albumin 4.4 g/dL (3.4-4.8); Alkaline Phosphatase 78 U/L (40-110); Anion Gap 16 mmol/L (10-20); BUN (Urea Nitrogen) 19 mg/dL (9.8-20.1); Bilirubin, Total 0.5 mg/dL (0.2-1.2); CK (CPK) 185 U/L (29-168); Calc. Creatinine Clearance 0 mL/min (70-130); Calcium 10.1 mg/dL (7.8-10.44); Carbon Dioxide 23 mmol/L (23-31); Chloride 104 mmol/L (98-107); Estimated GFR 75; Globulin 2.8 g/dL (2.4-3.5); Glucose 115 mg/dL (83-110); Lipase 40 U/L (8-78); Potassium 4.1 mmol/L (3.5-5.1); Protein, Total 7.2 g/dL (5.8-8.1); Sodium 139 mmol/L (136-145)
[2022-08-24 15:11] LABS: SARS-CoV-2 NAA Rapid Test Not Detected (NotDetected)
[2022-08-24] MEDS ORDERED: Nitroglycerin 2% Ointment 1 INCH/1 GM Packet ONE (15:15)
[2022-08-24] MEDS ORDERED: Ondansetron PF 4 MG/2 ML Vial IVP PRN (15:45)
[2022-08-24] MEDS ORDERED: Ondansetron ODT 4 MG TAB PO PRN (15:45)
[2022-08-24] MEDS ORDERED: Acetaminophen 325 MG TAB PO PRN (15:45)
[2022-08-24] MEDS ORDERED: Bisacodyl 5 MG TAB PO PRN (15:45)
[2022-08-24] MEDS ORDERED: Senokot S 8.6-50 MG TAB PO PRN (15:45)
[2022-08-24] MEDS ORDERED: Calcium Carbonate 500 MG ChewTAB PO PRN (15:45)
[2022-08-24] MEDS ORDERED: tiZANidine HCl 4 MG TAB PO PRN (15:51)
[2022-08-24] MEDS ORDERED: Albuterol Sulfate 2.5 mg/3 ml Neb NEB PRN (19:00)
[2022-08-24 19:10] VITALS: BMI 44.1
[2022-08-24] MEDS: Mometasone 200 MCG/Formoterol 5 MCG 120 PUFF INHALER INH SCH (19:35)
[2022-08-24 19:43] LABS: Troponin I 0.028 ng/mL (< 0.028)
[2022-08-24] MEDS ORDERED: Montelukast Sodium 10 mg Tablet PO SCH (21:00)
[2022-08-24] MEDS ORDERED: Rosuvastatin 10 MG TAB PO SCH (21:00)
[2022-08-24] MEDS ORDERED: Loratadine 10 MG TAB PO SCH (21:00)
[2022-08-24] MEDS: Sodium Chloride 0.9% 1,000 ML IV SCH (22:06)
[2022-08-25 05:06] LABS: #Eosinphils 0.2 thou/uL (0.0-0.7); #Lymphocytes 2.4 thou/uL (1.20-3.40); #Monocytes 0.7 thou/uL (0.11-0.59); #Neutrophils 3.8 thou/uL (1.40-6.50); %Basophils 0.3 % (0.0-1.0); %Eosinophils 2.7 % (0.0-10.0); %Lymphocytes 34.4 % (21.0-51.0); %Monocytes 9.3 % (0.0-10.0); %Neutrophils 53.4 % (42.0-75.0); Hemoglobin 13.4 g/dL (12.0-16.0); Mean Corpuscular HGB CONC 32.9 g/dL (32.0-36.0); Mean Corpuscular Hemoglobin 31.2 pg (27.0-31.0); Mean Corpuscular Volume 94.7 fl (78.0-98.0); Mean Platelet Volume 7.7 fL (7.4-10.4); Platelet Count 242 thou/uL (130-400); RBC Distribution Width 12.1 % (11.5-14.5); Red Blood Cell (RBC) Count 4.29 mill/uL (4.20-5.40)
[2022-08-25 05:08] LABS: ALT (SGPT) 20 U/L (8-55); AST (SGOT) 15 U/L (5-34); Albumin 3.8 g/dL (3.4-4.8); Alkaline Phosphatase 66 U/L (40-110); Anion Gap 11 mmol/L (10-20); BUN (Urea Nitrogen) 18 mg/dL (9.8-20.1); Bilirubin, Total 0.6 mg/dL (0.2-1.2); CK (CPK) 121 U/L (29-168); Calc. Creatinine Clearance 120 mL/min (70-130); Carbon Dioxide 27 mmol/L (23-31); Chloride 104 mmol/L (98-107); Estimated GFR 81; Globulin 2.2 g/dL (2.4-3.5); Glucose 104 mg/dL (83-110); Magnesium 1.8 mg/dL (1.6-2.6); Potassium 3.2 mmol/L (3.5-5.1); Sodium 139 mmol/L (136-145)
[2022-08-25] MEDS: Sodium Chloride 0.9% 1,000 ML IV SCH (06:20)
[2022-08-25] MEDS: Mometasone 200 MCG/Formoterol 5 MCG 120 PUFF INHALER INH SCH (07:21)
[2022-08-25] MEDS ORDERED: Enoxaparin Sodium 40 MG/0.4 ML SYRINGE SC SCH (09:00)
[2022-08-25] MEDS ORDERED: Losartan 25 MG TAB PO SCH (09:00)
[2022-08-25] MEDS ORDERED: Levothyroxine Sodium 125 MCG TAB PO SCH (09:00)
[2022-08-25] MEDS ORDERED: Magnesium 2 GM/50 ML(in water) 2 GM in Premix Bag 1 BAG IVPB SCH (09:30)
[2022-08-25] MEDS ORDERED: Potassium Chloride 20 MEQ TAB PO SCH (09:30)
[2022-08-25 12:43] VITALS: TEMP 98
[2022-08-25 13:36] VITALS: BP 168/79
[2022-08-25] MEDS ORDERED: Flecainide 50 MG TAB PO SCH (21:00)
[2022-08-25] MEDS ORDERED: Apixaban 5 MG TAB PO SCH (21:00)
[2022-08-28] MEDS ORDERED: FLU VACC QS2022-23(65YR UP)/PF 240 MCG/0.7 ML SYRINGE IM ONE (09:00)
== END 2022-08-25 15:54 | disposition home or self-care (01) ==
LOC: SUATTDRO 12:39 → ERS 12:39 → 2SW 18:59
PROVIDERS: ADMIT Internal Medicine; ATTEND Internal Medicine
DX: R00.2 Palpitations (principal); R00.0 Tachycardia, unspecified; I10 Essential (primary) hypertension; E78.5 Hyperlipidemia, unspecified; E03.9 Hypothyroidism, unspecified; G89.29 Other chronic pain; I44.7 Left bundle-branch block, unspecified; J45.909 Unspecified asthma, uncomplicated; I08.1 Rheumatic disorders of both mitral and tricuspid valves; G47.30 Sleep apnea, unspecified; I48.91 Unspecified atrial fibrillation; Z79.890 Hormone replacement therapy; Z79.899 Other long term (current) drug therapy; Z88.1 Allergy status to other antibiotic agents; Z88.2 Allergy status to sulfonamides; Z88.8 Allergy status to other drugs, medicaments and biological substances; Z90.2 Acquired absence of lung [part of]; Z20.822 Contact with and (suspected) exposure to COVID-19
CPT/HCPCS: 0240U; 71045; 71275; 80053; 82550 ×2; 83690; 83735; 83880; 84484 ×2; 85025; 85379; 93005 ×2; 93306; 94640 ×2; 36415; 84443; 93010; 96372; 96374; G0378; J1650; J3475; J7050; Q9967